=== PATIENT | male | born 1965 | race Caucasian/White ===

== ENCOUNTER 2023-03-12 07:30 | Inpatient (IN) ==
--- NOTE | 2023-03-10 15:49 | XRay Report ---
CLINICAL INFORMATION: Preop COMPARISON: None. TECHNIQUE: PA and Lateral views FINDINGS: The heart size, mediastinum and pulmonary vessels are unremarkable. The lungs are clear. There are no effusions. The bones and soft tissues are within normal limits. IMPRESSION: Normal chest. Interpreted and Authenticated by: Chinmay Barahona 03/10/23
[2023-03-10 18:23] LABS: Basophils # (Auto) 0.03 K/mcL (0.00-0.30); Basophils % (Auto) 0.3 % (0.0-2.0); Hematocrit 44.2 % (40.1-51.0); Hemoglobin 14.1 g/dL (13.7-17.5); Lymphocytes # (Auto) 3.67 K/mcL (1.50-4.80); Lymphocytes % (Auto) 36.5 % (15.5-49.0); Mean Cell Volume 86.3 fL (80.0-100.0); Mean Corpuscular HGB Conc 31.9 g/dL (31.0-36.0); Monocytes # (Auto) 0.74 K/mcL (0.10-0.90); Monocytes % (Auto) 7.4 % (1.0-12.0); Neutrophils % (Auto) 54.5 % (38.0-78.0); Platelet Count 274 K/mcL (140-440); RBC 5.12 M/mcL (4.63-6.08); Red Cell Distribution Width 13.7 % (11.5-14.5); WBC 10.1 K/mcL (4.5-11.0)
[2023-03-10 18:36] LABS: Partial Thromboplastin Time 37.2 sec (20.0-37.0); Prothrombin Time 13.2 sec (11.9-14.5)
[2023-03-10 18:44] LABS: ALT/SGPT 13 U/L (<40); AST/SGOT 12 U/L (<40); Albumin 4.2 gm/dL (3.2-5.2); Albumin/Globulin Ratio 1.2 (1.0-2.3); Alkaline Phosphatase 82 U/L (39-117); Bilirubin,Total 0.4 mg/dL (0.1-1.0); Blood Urea Nitrogen 10 mg/dL (6-20); Calcium 9.5 mg/dL (8.6-10.4); Carbon Dioxide 26 mmol/L (22-30); Chloride 102 mmol/L (96-108); Globulin 3.4 gm/dL (2.2-3.7); Glomerular Filtration Rate 98; Glucose 92 mg/dL (70-105)
[~2023-03-12 07:30] MED LIST: ceFAZolin 2 GM in DEXTROSE 5% IN WATER 50 ML IV SCH
[2023-03-12] MEDS ORDERED: HYDROmorphone 1 MG/ML SYRINGE ONE (08:45)
[2023-03-12] MEDS ORDERED: ePHEDrine 50 MG/5 ML SYRINGE (ANEST) IV ONE (08:45)
[2023-03-12] MEDS ORDERED: GLYCOPYRROLATE 0.2 MG/ML VIAL IV ONE (08:45)
[2023-03-12] MEDS ORDERED: LIDOCAINE HCL/PF 100 MG/5 ML SYRINGE IV ONE (08:45)
[2023-03-12] MEDS ORDERED: SUGAMMADEX SODIUM 200 MG/2 ML VIAL IV ONE (08:45)
[2023-03-12] MEDS ORDERED: ROCURONIUM 10 MG/ML ML IV ONE (08:45)
[2023-03-12] MEDS ORDERED: PROPOFOL 200 MG/20 ML VIAL IV ONE (08:45)
[2023-03-12] MEDS ORDERED: fentaNYL 100 MCG/2 ML VIAL IV ONE (08:45)
[2023-03-12] MEDS ORDERED: ONDANSETRON 4 MG/2 ML VIAL ONE (08:45)
[2023-03-12] MEDS ORDERED: DEXAMETHASONE 10 MG/ML VIAL ONE (08:45)
[2023-03-12] MEDS ORDERED: ONDANSETRON 4 MG/2 ML VIAL IV PRN (11:00)
[2023-03-12] MEDS ORDERED: MEPERIDINE 25 MG/ML VIAL IV PRN (11:00)
[2023-03-12] MEDS ORDERED: IPRATROPIUM/ALBUTEROL 3 ML AMPUL.NEB NEB PRN (11:00)
[2023-03-12] MEDS ORDERED: ACETAMINOPHEN 1,000 MG/100 ML BAG IV ONE (11:00)
[2023-03-12] MEDS ORDERED: METHOCARBAMOL 1,000 MG/10 ML VIAL IV PRN (11:00)
--- NOTE | 2023-03-12 11:05 | Brief Operative Note ---
Brief Operative Note Date of procedure: 03/12/23 Pre-op diagnosis: acute cholecystitis with cholelithiasis Post-op diagnosis: other (acute severe cholecystitis with cholelithiasis) Procedure: open cholcystectomy Grafts/Implants: No (jpx1) Anesthesia: GETA Findings: severe inflammation in the ruq; gallbladder could not be located; severely inflamed fibrotic gallbladder totally encased in fibrotic omentum Complications: none Surgeon: Elsa Aleman Estimated blood loss (cc): 40 Specimens Removed/Pathology: other (gallbladder) Condition: stable Disposition: PACU
[2023-03-12] MEDS: fentaNYL 100 MCG/2 ML VIAL IV PRN ×4 (11:29→11:45)
[2023-03-12] MEDS ORDERED: ALBUTEROL SULFATE 60 PUFF INHALER INH PRN (12:18)
[2023-03-12] MEDS: 0.9 % SODIUM CHLORIDE 1,000 ML IV SCH ×2 (12:29→23:01)
[2023-03-12] MEDS: CEFEPIME 1 GM VIAL IV SCH ×2 (12:39→21:27)
[2023-03-12] MEDS: HYDROmorphone 1 MG/ML SYRINGE IV PRN (14:54)
[2023-03-12] MEDS ORDERED: PANTOPRAZOLE 40 MG TABLET PO ONE (15:36)
[2023-03-12] MEDS: oxyCODONE IR 5 MG TABLET PO PRN ×2 (16:12→21:47)
[2023-03-12] MEDS: ACETAMINOPHEN 1,000 MG/100 ML BAG IV SCH ×2 (17:53→23:38)
[2023-03-12] MEDS: UMECLIDINIUM 62.5 MCG INH SCH (21:26)
[2023-03-12] MEDS: FLUTICASONE 100 MCG INH SCH (21:26)
[2023-03-12] MEDS: VILANTEROL INH SCH (21:26)
[2023-03-13] MEDS: CEFEPIME 1 GM VIAL IV SCH ×3 (05:13→21:43)
[2023-03-13] MEDS: ACETAMINOPHEN 1,000 MG/100 ML BAG IV SCH ×4 (05:13→23:47)
[2023-03-13 07:16] LABS: Basophils # (Auto) 0.02 K/mcL (0.00-0.30); Basophils % (Auto) 0.1 % (0.0-2.0); Eosinophils # (Auto) 0 K/mcL (0.00-0.70); Eosinophils % (Auto) 0 % (0.0-7.0); Hematocrit 40.6 % (40.1-51.0); Hemoglobin 13.2 g/dL (13.7-17.5); Lymphocytes # (Auto) 3.42 K/mcL (1.50-4.80); Lymphocytes % (Auto) 19.7 % (15.5-49.0); Mean Cell Volume 85.5 fL (80.0-100.0); Mean Corpuscular HGB Conc 32.5 g/dL (31.0-36.0); Mean Platelet Volume 9.8 fL (8.8-12.5); Monocytes # (Auto) 1.31 K/mcL (0.10-0.90); Monocytes % (Auto) 7.6 % (1.0-12.0); Platelet Count 256 K/mcL (140-440); RBC 4.75 M/mcL (4.63-6.08); Red Cell Distribution Width 13.7 % (11.5-14.5); WBC 17.4 K/mcL (4.5-11.0)
[2023-03-13 08:05] LABS: ALT/SGPT 32 U/L (<40); AST/SGOT 32 U/L (<40); Albumin 3.5 gm/dL (3.2-5.2); Albumin/Globulin Ratio 1.1 (1.0-2.3); Alkaline Phosphatase 67 U/L (39-117); Bilirubin,Direct 0.3 mg/dL (<0.3); Bilirubin,Total 0.8 mg/dL (0.1-1.0); Blood Urea Nitrogen 10 mg/dL (6-20); Calcium 8.8 mg/dL (8.6-10.4); Carbon Dioxide 25 mmol/L (22-30); Chloride 101 mmol/L (96-108); Globulin 3.1 gm/dL (2.2-3.7); Glomerular Filtration Rate 104; Glucose 115 mg/dL (70-105); Lactate Dehydrogenase 207 U/L (135-225); Phosphorous 3.1 mg/dL (2.5-4.5); Triglycerides 67 mg/dL (<150); Uric Acid 6.4 mg/dL (2.5-8.0)
[2023-03-13] MEDS: PANTOPRAZOLE 40 MG TABLET PO SCH (08:24)
[2023-03-13] MEDS: 0.9 % SODIUM CHLORIDE 1,000 ML IV SCH ×3 (08:24→17:09)
[2023-03-13] MEDS: LISINOPRIL 10 MG TABLET PO SCH (08:24)
[2023-03-13] MEDS: HYDROmorphone 1 MG/ML SYRINGE IV PRN (10:15)
[2023-03-13] MEDS: oxyCODONE IR 5 MG TABLET PO PRN (13:02)
--- NOTE | 2023-03-13 13:54 | General Surgery Progress Note ---
SUBJECTIVE Subjective Patient information: Note initiated : 03/13/23 at 1:49 pm Service Date, if different from initiated Date: [] Patient: Govind Mejia 57 y/o M admitted on . Chief Complaint: [] Principal diagnosis: Cholelithiasis with cholecystitis Interval history: Patient is status post cholecystectomy on yesterday. His pain is uncontrolled and he has nausea. White blood count is elevated at17. 4. Liver panel is norm al. JACQUIE drainage is serosanguineous Constitutional Vitals: Vital Signs Temp Pulse Resp BP Pulse Ox O2 Del Method O2 Flow Rate 98.2 F 87 18 125/72 91 Room Air 1 03/13/23 11:44 03/13/23 11:44 03/13/23 11:44 03/13/23 11:44 03/13/23 11:44 03/13/23 11:44 03/12/23 14:10 Period Temp Pulse Resp BP Sys/Lloyd Pulse Ox O2 Del Method O2 Flow Rate Last 24 Hr 97.5 F-98.9 F 74-102 18-20 106-133/70-81 90-97 Nasal Cannula- Room Air 1 Intake and Output 03/13/23 03/13/23 03/13/23 03:59 11:59 19:59 Intake Total 1350 1100 100 Output Total 615 800 Balance 735 300 100 Intake & Output: Intake & Output 03/13/23 03/13/23 03/13/23 03:59 11:59 19:59 Intake Total 1350 1100 100 Output Total 615 800 Balance 735 300 100 Intake: IV 1100 1100 100 Sodium Chloride 0.9% 1,000 ml @ 1000 1000 100 mls/hr IV .Q10H [facility] Rx#: [id number] Oral 250 Output: Drainage 40 JACQUIE Drain 40 Void Amount 575 800 Other: Urine Appearance Clear Urine Color Yellow Urine Odor Strong Neck Neck exam: Present normal inspection Respiratory Respiratory exam: Present normal respiratory exam and CTAB Cardiovascular Cardiovascular exam: Present normal rate and rhythm, RRR, +S1 and +S2; Absent JVD GI/Abdominal GI/Abdominal exam: Present diminished bowel sounds and distended Additional comments: Tenderness of right subcostal incision Extremities Exam Extremities exam: Present normal inspection and neurovascular intact Back Exam Back exam: Present normal inspection Neurological Exam Neurological exam: Present normal gait and oriented X3; Absent motor sensory deficit Psychiatric Psychiatric exam: Present normal affect and normal mood A/P Assessment and plan (1) Cholelithiasis and cholecystitis without obstruction: Status: Acute (2) Obstructive sleep apnea: Status: Chronic (3) Chronic obstructive pulmonary disease: Status: Chronic Comment: Emphysema Qualifiers: COPD type: emphysema Emphysema type: unspecified Qualified Code(s): J43.9 - Emphysema, unspecified Plan Patient is clinically stable but needs more antibiotics Patient has significant difficulty with pain control Discharge is delayed Time Spent With Patient Time: Total time spent is greater than 50% in coordination of care (as documented) at patient's floor/unit and/or counseling patient:
[2023-03-13] MEDS: FLUTICASONE 100 MCG INH SCH (21:43)
[2023-03-13] MEDS: VILANTEROL INH SCH (21:43)
[2023-03-13] MEDS: UMECLIDINIUM 62.5 MCG INH SCH (21:43)
[2023-03-14] MEDS: 0.9 % SODIUM CHLORIDE 1,000 ML IV SCH ×2 (05:14→16:05)
[2023-03-14] MEDS: ACETAMINOPHEN 1,000 MG/100 ML BAG IV SCH ×2 (05:15→11:34)
[2023-03-14] MEDS: CEFEPIME 1 GM VIAL IV SCH ×2 (05:15→14:02)
[2023-03-14 06:39] LABS: Basophils # (Auto) 0.03 K/mcL (0.00-0.30); Basophils % (Auto) 0.2 % (0.0-2.0); Eosinophils # (Auto) 0.13 K/mcL (0.00-0.70); Hematocrit 40.6 % (40.1-51.0); Lymphocytes # (Auto) 2.95 K/mcL (1.50-4.80); Lymphocytes % (Auto) 22.7 % (15.5-49.0); Mean Platelet Volume 10.1 fL (8.8-12.5); Monocytes # (Auto) 0.97 K/mcL (0.10-0.90); Monocytes % (Auto) 7.5 % (1.0-12.0); Neutrophils % (Auto) 68.1 % (38.0-78.0); Platelet Count 221 K/mcL (140-440); RBC 4.72 M/mcL (4.63-6.08); Red Cell Distribution Width 13.9 % (11.5-14.5)
[2023-03-14] MEDS: PANTOPRAZOLE 40 MG TABLET PO SCH (06:53)
[2023-03-14 07:49] LABS: ALT/SGPT 22 U/L (<40); AST/SGOT 26 U/L (<40); Albumin 3.4 gm/dL (3.2-5.2); Albumin/Globulin Ratio 1.1 (1.0-2.3); Alkaline Phosphatase 63 U/L (39-117); Bilirubin,Direct 0.2 mg/dL (<0.3); Bilirubin,Total 0.7 mg/dL (0.1-1.0); Blood Urea Nitrogen 10 mg/dL (6-20); Carbon Dioxide 23 mmol/L (22-30); Chloride 103 mmol/L (96-108); Globulin 3.2 gm/dL (2.2-3.7); Glomerular Filtration Rate 104; Glucose 104 mg/dL (70-105); Lactate Dehydrogenase 185 U/L (135-225); Phosphorous 1.8 mg/dL (2.5-4.5); Triglycerides 66 mg/dL (<150); Uric Acid 5.8 mg/dL (2.5-8.0)
[2023-03-14] MEDS: LISINOPRIL 10 MG TABLET PO SCH (08:57)
--- NOTE | 2023-03-14 16:17 | Discharge Summary ---
Discharge Provider Provider IMPORTANT FOLLOW-UP INFORMATION FOR PCP: Patient information: Note initiated : 03/14/23 at 4:12 pm Service Date, if different from initiated Date: [] Patient: Govind Mejia 57 y/o M admitted on 03/13/23. Chief Complaint: [] Date of admission: 03/13/23 14:10 Discharge date: 03/14/23 Primary care physician: Lewis Chang MD Admitting clinician: Elsa Aleman Attending physician on admission: Elsa Aleman Attending physician on discharge: Elsa Aleman Discharging clinician: Elsa Aleman COURSE Hospital Course Hospital course: 57-year-old male with long-term history of chronic abdominal pain with confirmed diagnosis cholelithiasis with cholecystitis. Patient was scheduled for laparoscopic cholecystectomy but it was not possible because of severe infection and encasement and omentum. Open cholecystectomy was done. He had elevated white blood count and increased drainage postoperatively. Hospitalization was mandated for IV antibiotics. He is stable at this time and the drainage is decreasing in volume. His white blood count is down to 13. patient is stable for discharge home Discharge diagnosis: Cholelithiasis with cholecystitis Secondary discharge diagnosis: Obstructive sleep apnea Chronic obstructive pulmonary disease Reason for admission: Cholecystectomy with advanced infection Procedures: Open cholecystectomy Pertinent studies/significant findings: None Complications: None Time Spent with Patient Time attestation: Total time spent providing and/or coordinating discharge services: Time spent: Less than 30 minutes Physical Examination Vital Signs Vital signs: Temp Pulse Resp BP Pulse Ox O2 Del Method O2 Flow Rate 98.6 F 98 H 20 112/87 95 Room Air 1 03/14/23 16:08 03/14/23 16:08 03/14/23 16:08 03/14/23 16:08 03/14/23 16:08 03/14/23 16:08 03/12/23 14:10 General physical appearance General physical exam: well developed, well nourished and moderate pain Eyes Eye exam: PERRL and normal ocular movement ENT ENT exam: no hearing loss Head Head exam IM: Present atraumatic, normal inspection and normocephalic Neck Neck exam: no masses, no bruits, trachea midline, no lymphadenopathy and no venous distension Cardiovascular Cardiovascular exam IM: Present normal rate and rhythm, RRR, +S1 and +S2; Absent JVD Respiratory Respiratory exam: normal expansion, normal respiratory effort and clear to auscultation Abdomen Abdomen: Present tender (Very tender right subcostal incision), guarding and distended (Moderate distention) Integumentary Integumentary: Present no rash, no growths and no abnormal pigmentation Neurologic Neurologic: Present normal coordination and normal sensation Musculoskeletal Musculoskeletal: Present normal gait and normal posture Psychiatric Psychiatric: Present oriented to time, oriented to person, oriented to place, speech is normal and memory intact Discharge Plan Patient/Caregiver Discharge Instructions Activity: increase activity as tolerated Diet: Regular Diet and Low Fat Prescriptions: New oxycodone-acetaminophen [Endocet] 10-325 mg tablet 1 tab PO Q4H PRN (Reason: Pain) Qty: 30 0RF levofloxacin [levofloxacin] 750 mg tablet 750 mg PO DAILY Qty: 10 0RF No Action Trelegy Ellipta 100-62.5-25 mcg blister with device 1 ea INHALATION QPM Qty: 60 6RF albuterol sulfate 90 mcg/actuation HFA aerosol inhaler 2 puff inhalation QID PRN (Reason: SOB) lisinopril 10 mg Tablet 10 mg PO QAM lansoprazole [Prevacid] 30 mg Capsule,Delayed Release(Dr/Ec) 30 mg PO QAM multivitamin Tablet 1 tab PO QDAY Fruit and Vegetable Daily 5-6-150 mg Capsule 1 cap PO QDAY Prescription drug monitoring program results: PDMP not reviewed Follow Up Plan Follow up with: Elsa Aleman MD [Physician] - 03/27/23 1:30 pm Patient Disposition: Home, Self-Care Prognosis: Good Rehab Potential: Good I certify that the patient requires SNF services: No Overall status at discharge: patient is progressing back to baseline Discharge Orders: Discharge Order (Routine); Ordered 03/14/23 Ordered By: Elsa Aleman Pending Pending Pending: Diet Regular Diet Start Mary Anne Mar 13 08 Cefepime HCl (Cefepime 1 Gm Vial) 1 gm IV Q8H ANJEL; Protocol Last Admin: 03/14/23 14:02 Dose: 1 gm Documented By: MARY LOU Admin: 03/14/23 05:15 Dose: 1 gm Documented By: Admin: 03/13/23 21:43 Dose: 1 gm Documented By: Admin: 03/13/23 13:39 Dose: 1 gm Documented By: Admin: 03/13/23 05:13 Dose: 1 gm Documented By: Admin: 03/12/23 21:27 Dose: 1 gm Documented By: Admin: 03/12/23 12:39 Dose: 1 gm Documented By: CIRO Hydromorphone HCl (Hydromorphone 1 Mg/Ml Syringe) 1 mg IV Q2HP PRN; Protocol PRN Reason: Per Pain Protocol Last Admin: 03/13/23 10:15 Dose: 1 mg Documented By: Admin: 03/12/23 14:54 Dose: 1 mg Documented By: CIRO Sodium Chloride (Sodium Chloride 0.9%) 1,000 mls @ 100 mls/hr IV .Q10H [facility] Last Admin: 03/14/23 16:05 Dose: Not Given Documented By: MARY LOU Infusion: 03/14/23 09:09 Dose: 0 mls/hr Documented By: MARY LOU Admin: 03/14/23 05:14 Dose: Not Given Documented By: Infusion: 03/13/23 22:15 Dose: 100 mls/hr Documented By: Admin: 03/13/23 17:09 Dose: Not Given Documented By: Admin: 03/13/23 10:14 Dose: 100 mls/hr Documented By: Infusion: 03/13/23 09:01 Dose: 100 mls/hr Documented By: Admin: 03/13/23 08:24 Dose: Not Given Documented By: Admin: 03/12/23 23:01 Dose: 100 mls/hr Documented By: Infusion: 03/12/23 22:29 Dose: 100 mls/hr Documented By: Admin: 03/12/23 12:29 Dose: 100 mls/hr Documented By: CIRO Acetaminophen (Ofirmev) 1,000 mg in 100 mls @ 200 mls/hr IV Q6H [facility] Last Infusion: 03/14/23 12:40 Dose: 0 mls/hr Documented By: MARY LOU Infusion: 03/14/23 12:18 Dose: 200 mls/hr Documented By: MARY LOU Infusion: 03/14/23 11:45 Dose: 0 mls/hr Documented By: MARY LOU Admin: 03/14/23 11:34 Dose: 200 mls/hr Documented By: MARY LOU Infusion: 03/14/23 05:53 Dose: 0 mls/hr Documented By: Admin: 03/14/23 05:15 Dose: 200 mls/hr Documented By: Infusion: 03/14/23 00:20 Dose: 0 mls/hr Documented By: Admin: 03/13/23 23:47 Dose: 200 mls/hr Documented By: Infusion: 03/13/23 20:33 Dose: 0 mls/hr Documented By: Admin: 03/13/23 17:07 Dose: 200 mls/hr Documented By: Infusion: 03/13/23 13:15 Dose: 0 mls/hr Documented By: Admin: 03/13/23 12:33 Dose: 200 mls/hr Documented By: Infusion: 03/13/23 06:08 Dose: 0 mls/hr Documented By: Admin: 03/13/23 05:13 Dose: 200 mls/hr Documented By: Infusion: 03/13/23 00:13 Dose: 0 mls/hr Documented By: Admin: 03/12/23 23:38 Dose: 200 mls/hr Documented By: Infusion: 03/12/23 19:07 Dose: 0 mls/hr Documented By: Admin: 03/12/23 17:53 Dose: 200 mls/hr Documented By: CIRO Lisinopril (Lisinopril 10 Mg Tablet) 10 mg PO [facility] Admin: 03/14/23 08:57 Dose: Not Given Documented By: MARY LOU Admin: 03/13/23 08:24 Dose: 10 mg Documented By: MONICA Oxycodone HCl (Oxycodone Ir 5 Mg Tablet) 10 mg PO Q4HP PRN; Protocol PRN Reason: Per Pain Protocol Last Admin: 03/13/23 13:02 Dose: 10 mg Documented By: Admin: 03/12/23 21:47 Dose: 10 mg Documented By: Admin: 03/12/23 16:12 Dose: 10 mg Documented By: CIRO Pantoprazole Sodium (Pantoprazole 40 Mg Tablet) 40 mg PO QAMAC [facility] Last Admin: 03/14/23 06:53 Dose: 40 mg Documented By: MARY LOU Admin: 03/13/23 08:24 Dose: 40 mg Documented By: MONICA Fluticasone 100 Mcg- Umeclidine 62.5 Mcg- Vilanterol 25 Mcg [ Trelegy Ellipta] Inhaler 1 dose INH HS [facility] Last Admin: 03/13/23 21:43 Dose: 1 dose Documented By: Admin: 03/12/23 21:26 Dose: 1 dose Documented By: SLAVA Shift Summary 03/14/23 15:32 Shift Summary by Savannah Langston The patient is alert and oriented x4, pleasant and cooperative. Midline incision dressing has scant drainage noted. JACQUIE set to continuous suction. VSS on RA. Pt ambulates with either a cane or FWW. New 24G IV to right hand infusing Ofirmev and NS intermittently. Patient voids per urinal, and getting up to 2,000 on the IS. No PRN's administered. Initialized on 03/14/23 15:32 - END OF NOTE
--- NOTE | 2023-03-15 20:57 | EKG ---
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
--- NOTE | 2023-03-19 12:16 | Operative Note ---
DATE OF OPERATION: 03/12/2023 PREOPERATIVE DIAGNOSIS: Acute cholecystitis with cholelithiasis. POSTOPERATIVE DIAGNOSIS: Acute severe cholecystitis with cholelithiasis. PROCEDURE: Open cholecystectomy. SURGEON: Elsa Aleman M.D. FINDINGS: Severe inflammation in the right upper quadrant. Laparoscopically, the gallbladder could not be located in the tightly encased fibrotic omentum. After dissection for about 20 minutes it was elected to switch to an open procedure. Right subcostal incision was made after instruments were counted. The omentum was from the peritoneum and the liver. Using electrocautery, the omentum, over what appeared to be a shrunken fibrotic gallbladder, was incised until the wall of the gallbladder was encountered. The omentum was then bluntly dissected from the gallbladder wall down to the infundibulum. The thickened wall of the gallbladder was scored starting at the dome and working down to the infundibulum. This was continued until the gallbladder was entirely identified down to the cystic artery and cystic duct. Cystic artery was followed onto the wall of the gallbladder. It was tied with three sutures of 2-0 silk and divided. The gallbladder was then adherent only by the cystic duct. The cystic duct was clamped at its junction with the gallbladder. It was excised. Cystic duct was tied with two ligatures of 2-0 silk and clipped with two clips. Irrigation was carried out. Dwayne-Mabry drain was placed in the subhepatic space and brought out through a lateral stab incision. Irrigation was carried out. The rectus fascia was closed in two layers using 0 Prolene. Subcutaneous tissue was closed with 2-0 Monocryl. Skin was closed with maria isabel. The patient tolerated the procedure well. Tegaderm dressing was placed. He was awakened, transferred to a bed, and taken to the postanesthetic care unit in satisfactory condition. LCS:olivia Job ID: [id number] Doc ID: [id number] Elsa Aleman M.D.
== END 2023-03-14 17:42 | disposition home or self-care (01) | DRG 416 ==
LOC: SUR 07:30 → MEDSUR 12:04
PROVIDERS: ADMIT Family Medicine Adult Medicine; ATTEND Family Medicine Adult Medicine